=== PATIENT | female | born 1990 | race Two or more races ===

== ENCOUNTER 2017-07-09 12:55 | Emergency (ER) | payer MEDICAID ==
[~2017-07-09] VITALS: Ht 172.7 cm; Wt 70.3 kg
--- NOTE | 2017-07-09 13:00 | NUR ---
PATIENT TO ED DT ON & OFF MIGRATING HEADACHE X 4 WEEKS. VSS
[2017-07-09] MEDS ORDERED: METOCLOPRAMIDE HCL 10 MG/2 ML VIAL IV ONE (14:00)
[2017-07-09] MEDS ORDERED: diphenhydrAMINE HCL 50 MG/ML VIAL IV ONE (14:00)
[2017-07-09] MEDS ORDERED: KETOROLAC TROMETHAMINE INJ 30 MG/ML VIAL IV ONE (14:00)
[2017-07-09] MEDS ORDERED: IV NS 0.9% 1,000 ML BAG IV ONE (14:00)
[2017-07-09] MEDS ORDERED: diphenhydrAMINE HCL 50 MG/ML VIAL ONE (14:01)
[2017-07-09] MEDS ORDERED: KETOROLAC TROMETHAMINE 15 MG/ML VIAL ONE (14:01)
[2017-07-09] MEDS ORDERED: METOCLOPRAMIDE HCL 10 MG/2 ML VIAL ONE (14:02)
[2017-07-09] MEDS ORDERED: ACETAMINOPHEN ES 500 MG TABLET ONE (14:33)
[2017-07-09] MEDS ORDERED: DEXAMETHASONE SOD PHOSPHATE 10 MG/ML VIAL ONE (14:42)
[2017-07-09] MEDS ORDERED: DEXAMETHASONE SOD PHOSPHATE 10 MG/ML VIAL IM ONE (15:00)
--- NOTE | 2017-07-09 15:13 | NUR ---
Patient discharged to home in stable condition. Written and verbal after care instructions given. Patient verbalizes understanding of instruction.
[2017-07-09 15:14] VITALS: BP 110/71
[2017-07-09] MEDS ORDERED: ACETAMINOPHEN ES 500 MG TABLET PO ONE (15:30)
== END 2017-07-09 15:14 | disposition home or self-care (01) ==
LOC: ER 12:58
DX: R51 Headache (principal); F12.90 Cannabis use, unspecified, uncomplicated
CPT/HCPCS: 96372; 99283; A4606; J1100; J7030; Z7610; J1200; J1885; J2765